=== PATIENT | female | born 1970 | race Caucasian/White ===

== ENCOUNTER → 2016-07-12 | Outpatient (CLI) | payer BC ==
--- NOTE | 2016-07-13 13:44 | MM ---
Reason for exam: screening (asymptomatic). Last mammogram was performed 1 year and 4 months ago. History: Patient is postmenopausal. Family history of breast cancer in paternal grandmother. Took hormonal contraceptives for 2 years beginning at age 35. Physical Findings: A clinical breast exam by your physician is recommended on an annual basis and results should be correlated with mammographic findings. MG Screening Mammo w CAD Bilateral CC and MLO view(s) were taken. Prior study comparison: March 11, 2015, bilateral MG screening mammo w CAD. January 05, 2014, bilateral MG screening mammo w CAD. The breast tissue is heterogeneously dense. This may lower the sensitivity of mammography. There is no discrete abnormality. ASSESSMENT: Negative, BI-RAD 1 RECOMMENDATION: Routine screening mammogram of both breasts in 1 year.
== END | disposition home or self-care (01) ==
LOC: RADMAMWWP 06:58
PROVIDERS: ATTEND Obstetrics & Gynecology
DX: Z12.31 Encounter for screening mammogram for malignant neoplasm of breast (principal)

== ENCOUNTER → 2017-08-07 | Outpatient (CLI) | payer BC ==
--- NOTE | 2017-08-08 10:11 | MM ---
Reason for exam: screening (asymptomatic). Last mammogram was performed 1 year and 1 month ago. History: Patient is postmenopausal. Family history of breast cancer in paternal grandmother. Took hormonal contraceptives for 2 years beginning at age 35. Physical Findings: A clinical breast exam by your physician is recommended on an annual basis and results should be correlated with mammographic findings. MG 3D Screening Mammo W/Cad Bilateral CC and MLO view(s) were taken. Prior study comparison: July 12, 2016, bilateral MG screening mammo w CAD. March 11, 2015, bilateral MG screening mammo w CAD. The breast tissue is extremely dense which could obscure a lesion on mammography. No suspicious abnormality. No significant changes when compared with prior studies. ASSESSMENT: Negative, BI-RAD 1 RECOMMENDATION: Routine screening mammogram of both breasts in 1 year.
== END | disposition home or self-care (01) ==
LOC: RADMAMWWP 15:06
PROVIDERS: ATTEND Obstetrics & Gynecology
DX: Z12.31 Encounter for screening mammogram for malignant neoplasm of breast (principal)
CPT/HCPCS: 77063; 77067

== ENCOUNTER → 2018-10-20 | Outpatient (CLI) | payer BC ==
--- NOTE | 2018-10-21 10:06 | MM ---
Reason for exam: screening (asymptomatic). Last mammogram was performed 1 year and 2 months ago. History: Patient is postmenopausal. Family history of breast cancer in paternal grandmother. Took hormonal contraceptives for 2 years beginning at age 35. Physical Findings: A clinical breast exam by your physician is recommended on an annual basis and results should be correlated with mammographic findings. MG 3D Screening Mammo W/Cad Bilateral CC and MLO view(s) were taken. Prior study comparison: August 07, 2017, bilateral MG 3d screening mammo w/cad. July 12, 2016, bilateral MG screening mammo w CAD. The breast tissue is heterogeneously dense. This may lower the sensitivity of mammography. No suspicious abnormality. No significant changes when compared with prior studies. ASSESSMENT: Negative, BI-RAD 1 RECOMMENDATION: Routine screening mammogram of both breasts in 1 year.
== END | disposition home or self-care (01) ==
LOC: RADMAMWWP 06:57
PROVIDERS: ATTEND Obstetrics & Gynecology
DX: Z12.31 Encounter for screening mammogram for malignant neoplasm of breast (principal)
CPT/HCPCS: 77063; 77067

== ENCOUNTER → 2021-02-02 | Outpatient (CLI) | payer BC ==
--- NOTE | 2021-02-06 08:46 | MM ---
Reason for exam: screening (asymptomatic). Last mammogram was performed 1 year ago. History: Family history of breast cancer in paternal grandmother. Took hormonal contraceptives for 2 years beginning at age 35. Physical Findings: A clinical breast exam by your physician is recommended on an annual basis and results should be correlated with mammographic findings. MG 3D Screening Mammo W/Cad Bilateral CC and MLO view(s) were taken. Prior study comparison: January 29, 2020, bilateral MG 3d screening mammo w/cad. October 20, 2018, bilateral MG 3d screening mammo w/cad. The breast tissue is extremely dense which could obscure a lesion on mammography. No significant changes when compared with prior studies. ASSESSMENT: Negative, BI-RAD 1 RECOMMENDATION: Routine screening mammogram of both breasts in 1 year.
== END | disposition home or self-care (01) ==
LOC: RADMAMWWP 11:01
PROVIDERS: ATTEND Obstetrics & Gynecology
DX: Z12.31 Encounter for screening mammogram for malignant neoplasm of breast (principal)
CPT/HCPCS: 77063; 77067

== ENCOUNTER → 2022-03-23 | Outpatient (CLI) | payer BC ==
--- NOTE | 2022-03-27 07:46 | MM ---
Reason for Exam: Screening (asymptomatic). Last mammogram was performed 1 year(s) and 2 month(s) ago. Patient History: Menarche at age 15. First Full-Term at age 28. Hormonal Contraceptives for 2 years from age 35 until age 37. Paternal grandmother had breast cancer, age 63. Last menstrual period: 01/11/2016 Risk Values: Winnie 5 year model risk: 1.0%. NCI Lifetime model risk: 10.0%. Prior Study Comparison: 10/20/2018 Bilateral Screening Mammogram, [facility]. 01/29/2020 Bilateral Screening Mammogram, [facility]. 02/02/2021 Bilateral Screening Mammogram, [facility]. Tissue Density: The breast tissue is extremely dense which could obscure a lesion on mammography. Findings: Analyzed By CAD. There is no suspicious group of microcalcifications or new suspicious mass in either breast. No significant change from prior exams. Overall Assessment: Negative, BI-RAD 1 Management: Screening Mammogram of both breasts in 1 year. A clinical breast exam by your physician is recommended on an annual basis and results should be correlated with mammographic findings. Electronically signed and approved by: Henri Kern D.O.
== END | disposition home or self-care (01) ==
LOC: RADMAMWWP 16:40
PROVIDERS: ATTEND Obstetrics & Gynecology
DX: Z12.31 Encounter for screening mammogram for malignant neoplasm of breast (principal)
CPT/HCPCS: 77063; 77067

== ENCOUNTER → 2023-09-25 | Outpatient (CLI) | payer BC ==
[2023-09-25 16:09] LABS: Appearance,Urine Clear (Clear); Bilirubin,Urine Negative (Negative); Blood,Urine Negative (Negative); Color,Urine Yellow (Yellow); Ketones,Urine Negative (Negative); Nitrite,Urine Negative (Negative); Specific Gravity,Urine 1.012 (1.001-1.030); Urobilinogen,Urine 0.2 E.U./DL
[2023-09-25 17:02] LABS: Basophils # (A) 0.02 X 10*3/uL (0.00-0.10); Basophils % (A) 0.4 %; Eosinophils # (A) 0.19 X 10*3/uL (0.04-0.35); Eosinophils % (A) 3.6 %; HCT 41.7 % (37.2-46.3); Lymphocytes # (A) 1.34 X 10*3/uL (0.90-5.00); Lymphocytes % (A) 25.1 %; MCH 32.3 pg (27.0-32.0); MCHC 33.6 g/dL (32.0-37.0); MCV 96.3 FL (80.0-97.0); Mean Platelet Volume 10.4 FL (9.5-12.2); Monocytes # (A) 0.45 X 10*3/uL (0.20-1.00); Monocytes % (A) 8.4 %; NRBC Per 100 WBC 0 X 10*3/uL (0.00-0.01); Neutrophils # (A) 3.32 X 10*3/uL (1.80-7.70); Neutrophils % (A) 62.3 %; Platelet Count 237 X 10*3/uL (140-440); RBC 4.33 X 10*6/uL (4.10-5.20); RDW 13.6 % (11.5-14.5); WBC 5.33 X 10*3/uL (4.50-10.00)
[2023-09-25 17:31] LABS: BUN/Creat Ratio 20.12 Ratio (12.00-20.00); Blood Urea Nitrogen 16.1 mg/dL (9.0-27.0); Calcium 9.5 mg/dL (8.7-10.3); Carbon Dioxide 26.1 mmol/L (21.6-31.8); Chloride 105 mmol/L (96-109); Glucose 97 mg/dL (70-110); Potassium 4.1 mmol/L (3.5-5.5); Sodium 141 mmol/L (135-145)
== END | disposition home or self-care (01) ==
LOC: LABPAT 09:57
PROVIDERS: ATTEND Urology
DX: Z01.812 Encounter for preprocedural laboratory examination (principal); N39.3 Stress incontinence (female) (male)
CPT/HCPCS: 36415; 80048; 81003; 85025; 87086

== ENCOUNTER 2023-10-02 07:04 | Day surgery (SDC) | payer BC ==
[2023-09-27 16:06] VITALS: BMI 26.6
--- NOTE | 2023-10-01 17:30 | P.GSHP ---
History of Present Illness H&P Date: 10/01/23 52 yo female with a history of progressive stress urinary incontinence who has failed kegal exercises. She has a hypermobile urethra. SHe has been given treatment options and comes for a transobturator tape with cystoscopy. the risks and complications including infection, pain dyspareunia, injury to adjacent organs and bladder, retention, persistent incontinence among otheres. The mesh controversy has been discussed. SHe comes for this procedure. - Constitutional Constitutional: Denies chills, Denies fever - EENT Eyes: denies blurred vision, denies pain Ears, nose, mouth and throat: Denies headache, Denies sore throat - Cardiovascular Cardiovascular: Denies chest pain, Denies shortness of breath - Respiratory Respiratory: Denies cough, Denies 7 - Gastrointestinal Gastrointestinal: Denies abdominal pain, Denies diarrhea, Denies nausea, Denies vomiting - Genitourinary (Female) Genitourinary: Denies dysuria, Denies hematuria - Genitourinary (Male) Genitourinary: Denies dysuria, Denies hematuria - Musculoskeletal Musculoskeletal: Denies myalgias - Integumentary Integumentary: Denies pruritus, Denies rash - Neurological Neurological: Denies numbness, Denies weakness - Psychiatric Psychiatric: Denies anxiety, Denies depression - Endocrine Endocrine: Denies fatigue, Denies weight change Past Medical History Additional Past Medical History / Comment(s): stress incontinence History of Any Multi-Drug Resistant Organisms: None Reported Past Surgical History: Orthopedic Surgery, Uterine Ablation Additional Past Surgical History / Comment(s): bilat knee scopes. COLOLOSCOPY Past Anesthesia/Blood Transfusion Reactions: No Reported Reaction Smoking Status: Never smoker - Past Family History Mother Family Medical History: No Reported History Medications and Allergies Home Medications Medication Instructions Recorded Confirmed Type No Known Home Medications 09/27/23 09/27/23 History Allergies Allergy/AdvReac Type Severity Reaction Status Date / Time No Known Allergies Allergy Verified 09/27/23 15:35 Surgical - Exam - General well developed, well nourished, no distress - Eyes normal ocular movement, no icteric - ENT no hearing loss, no congestion - Neck no masses, trachea midline - Respiratory normal respiratory effort, clear to auscultation - Abdomen Abdomen: soft, non tender, no guarding, no rigid, no rebound - Genitourinary hypermobile urethra. - Integumentary no rash, no abnormal pigmentation - Neurologic no disoriented, no combative - Psychiatric oriented to time, oriented to person, oriented to place, speech is normal, memory intact Assessment and Plan Assessment: Impression: stress urinary incontinence Plan: transobturator tape with cystoscopy
[~2023-10-02 07:04] MED LIST: HYDROmorphone 0.5 MG/0.5 ML SYRINGE IVP PRN; LIDOCAINE 1% (10MG/ML) FOR IV START INTRADERMA PRN; MIDAZOLAM 2 MG/2 ML VIAL IV PRN
[2023-10-02] MEDS: LACTATED RINGERS 1,000 ML IV SCH (08:04)
[2023-10-02] MEDS: DEXAMETHASONE SOD PHOSPHATE 4 MG/ML 1 ML VIAL IV ONE (08:07)
[2023-10-02] MEDS: ONDANSETRON 4 MG/2 ML VIAL IVP ONE (08:08)
[2023-10-02 08:25] VITALS: RESP 16
[2023-10-02] MEDS: AMPICILLIN 1,000 MG in SODIUM CHLORIDE 0.9% 50 ML IVPB PRN (08:50)
[2023-10-02] MEDS: GENTAMICIN 100 MG in SODIUM CHLORIDE 0.9% 100 ML IVPB PRN (09:05)
[2023-10-02] MEDS: VASOPRESSIN 20 UNIT/ML 1 ML VIAL SQ ONE (09:12)
[2023-10-02] MEDS: GENTAMICIN 80 MG in SODIUM CHLORIDE 0.9% 500 ML 500 ML IRRIGATION ONE (09:15)
[2023-10-02] MEDS ORDERED: ONDANSETRON 4 MG/2 ML VIAL IVP PRN (09:35)
--- NOTE | 2023-10-02 09:40 | P.OP ---
Date of Procedure: 10/02/23 Preoperative Diagnosis: Stress urinary incontinence Postoperative Diagnosis: Same Procedure(s) Performed: Trans-obturator tape (obtyrx 2) bladder neck suspension, cystoscopy Anesthesia: LORELEIA Surgeon: Lefty Cuevas Estimated Blood Loss (ml): 25 Pathology: none sent Condition: stable Disposition: PACU Indications for Procedure: Patient is 52. She has type II stress incontinence on history and physical examination. She comes for a trans-obturator tape bladder neck suspension, the risks and and complications have been outlined Description of Procedure: Patient brought to the operating suite. Given a general anesthetic. Placed lithotomy position with a sterile prep and drape. Hernandez catheters placed. The labor sewn laterally with 2-0 silk. A vaginal speculum is placed. The anterior vaginal mucosa was elevated off the submucosa with 10 mL of a mixture of 20 g of Pitressin and 200 mL of saline. A midline suburethral incision is made. I dissect lateral to the bladder neck bilaterally. I make 2 incisions in the inguinal crease at the level clitoris bilaterally. I passed the trans-obturator tape introducers through the inguinal incisions into the vaginal space making sure not to injure the bladder. This is done bilaterally. The Hernandez catheter is removed. The cystoscope was introduced in the bladder with a Foroblique lens. The bladder is inspected and is normal. There is no evidence of injury in the bladder or urethra. I replaced the Hernandez. I then attached the trans- obturator graft to the introducers and pull it back through the obturator foramen bilaterally. The graft lay in the mid urethra nicely. I removed the redundant sheeting. I closed the vaginal mucosa with 2-0 Vicryl. I excised the redundant graft at the inguinal incisions and close inguinal incisions with 4-0 Vicryl. A vaginal packing is placed in the urine is clear. Blood loss is less than 25 mL. She tolerated the procedure well and will be placed in the hospital postoperatively.
[2023-10-02] MEDS: KETOROLAC 15 MG/ML 1 ML VIAL IVP PRN (17:30)
[2023-10-03 09:19] VITALS: BP 121/77; PULSE 69; TEMP 97.7
--- NOTE | 2023-10-03 14:18 | P.DS ---
Providers Expected date of discharge: 10/03/23 Attending physician: Lefty Cuevsa Primary care physician: [facility] Course: On the day of admission, the patient underwent an Obtryx subfascial sling procedure. The perioperative course was unremarkable. The patient remained afebrile with stable vital signs. Hernandez catheter was removed on the first postoperative day, and she was able to void without difficulty. She was verified to be emptying her bladder adequately. Incisions were clean, dry, and intact. Procedures: Obtryx subfascial sling on October 02, 2023. Patient Condition at Discharge: Good Plan - Discharge Summary Discharge Rx Participant: Yes New Discharge Prescriptions: New Cephalexin [Keflex] 500 mg PO Q8HR 1 Days #9 cap Ketorolac [Toradol] 10 mg PO Q6HR PRN #10 tab PRN Reason: Pain Cephalexin [Keflex] 500 mg PO Q8HR 1 Days #9 cap Ketorolac [Toradol] 10 mg PO Q6HR PRN #10 tab PRN Reason: Pain Discharge Medication List Cephalexin [Keflex] 500 mg PO Q8HR 1 Days #9 cap 10/03/23 [Rx] Cephalexin [Keflex] 500 mg PO Q8HR 1 Days #9 cap 10/03/23 [Rx] Ketorolac [Toradol] 10 mg PO Q6HR PRN #10 tab 10/03/23 [Rx] Ketorolac [Toradol] 10 mg PO Q6HR PRN #10 tab 10/03/23 [Rx] Follow up Appointment(s)/Referral(s): Lefty Cuevas MD [STAFF PHYSICIAN] - 1 Week Patient Instructions/Handouts: *[facility] - Cystoscopy Discharge Instructions, *[facility] - (Anesthesia) Discharge Instructions Outpatient Surgery Activity/Diet/Wound Care/Special Instructions: Diet as tolerated. Drink plenty of fluids. Okay to shower. No strenuous activity. Avoid sexual activity. Prescriptions were inadvertently sent to [facility], then to [facility]. Please cancel Rx at [facility]. Discharge Disposition: HOME SELF-CARE
== END 2023-10-03 12:29 | disposition home or self-care (01) ==
LOC: OR 07:04 → 4FBP 10:04 → OR 10-03 12:29
PROVIDERS: ATTEND Urology
DX: N39.3 Stress incontinence (female) (male) (principal); I10 Essential (primary) hypertension; F32.A Depression, unspecified; F41.9 Anxiety disorder, unspecified; K21.9 Gastro-esophageal reflux disease without esophagitis; F17.290 Nicotine dependence, other tobacco product, uncomplicated; Z98.890 Other specified postprocedural states; Z88.0 Allergy status to penicillin; Z79.899 Other long term (current) drug therapy
CPT/HCPCS: 81025; 57288; C1771; J1580 ×2; J1100; J2405; J0290; J1885

== ENCOUNTER → 2024-07-28 | Outpatient (CLI) | payer BC ==
--- NOTE | 2024-07-28 14:02 | MM ---
Reason for Exam: Screening (asymptomatic). Last mammogram was performed 1 year(s) and 4 month(s) ago. Patient History: Menarche at age 15. First Full-Term at age 28. Hormonal Contraceptives for 2 years from age 35 until age 37. Paternal grandmother had breast cancer, age 63. Risk Values: Winnie 5 year model risk: 1.1%. NCI Lifetime model risk: 9.7%. Prior Study Comparison: 02/02/2021 Bilateral Screening Mammogram, [facility]. 03/23/2022 Bilateral MG 3D screening mammo w/cad, [facility]. 04/01/2023 Bilateral MG 3D diag mammo w/cad [facility], [facility]. Tissue Density: The breasts are heterogeneously dense, which may obscure small masses. Findings: Analyzed By CAD. Unchanged areas of asymmetric density. There is no suspicious group of microcalcifications or new suspicious mass in either breast. Overall Assessment: Benign, BI-RAD 2 Management: Screening Mammogram of both breasts in 1 year. . Patient should continue monthly self-breast exams. A clinical breast exam by your physician is recommended on an annual basis. This exam should not preclude additional follow-up of suspicious palpable abnormalities. Note on Winnie scores and lifetime risk: 1. A Winnie score greater than 3% is considered moderate risk. If this is the case, consider specialist referral to assess eligibility for a risk reducing agent. 2. If overall lifetime risk for the development of breast cancer is 20% or higher, the patient may qualify for future screening with alternating mammogram and breast MRI. [facility], , 07/28/2024 1:59 PM. Electronically signed and approved by: Kenny Mckeon M.D. Radiologist
== END | disposition home or self-care (01) ==
LOC: RADMAMWWP 10:08
PROVIDERS: ATTEND Obstetrics & Gynecology
DX: Z12.31 Encounter for screening mammogram for malignant neoplasm of breast (principal); Z80.3 Family history of malignant neoplasm of breast; R92.333 Mammographic heterogeneous density, bilateral breasts
CPT/HCPCS: 77063; 77067

== ENCOUNTER → 2024-09-05 | Outpatient (CLI) | payer BC ==
--- NOTE | 2024-09-07 10:17 | MR ---
EXAMINATION TYPE: MR knee LT wo con DATE OF EXAM: 09/05/2024 3:13 PM COMPARISON: None. CLINICAL INDICATION: Female, 53 years old with history of M25.562 PAIN IN LEFT KNEE M17.12 UNILATERAL PRIMAR; PH[facility], Left knee pain for about 6 weeks, history of scope on knee. TECHNIQUE: Multi planar, multi sequence imaging was performed of the knee including: Triplane proton density fat-saturated images and T1-weighted imaging. No Gadolinium was given. IV Contrast: mL (none if empty) FINDINGS: Medial meniscus: Mucoid degeneration of the posterior horn/body posteriorly with horizontal tear of the body. Medial femorotibial cartilage: Grade-II chondromalacia. Medial collateral ligament: Intact Lateral meniscus: Horizontal tear of the body and vertical/undersurface tear of the posterior hor n. The anterior horn demonstrates heterogenous signal with suspected complex multidirectional tear wh ich appears more remote. Lateral femorotibial cartilage: Full-thickness cartilage loss of the tibial plateau series 411 im age 12 there is subchondral cystic change. Lateral collateral ligament complex: Intact Patellofemoral alignment: Normal Patellofemoral cartilage: Grade-III chondromalacia. Extensor mechanism: Intact. Joint/bursal fluid: Edema within the Hoffa fat pad is present. Jason's cyst present measuring 8.3 x 1.3 x 0.9 cm. There is a moderate joint effusion. Muscles/tendons: Ganglion cyst anterior to the attachment of the anterior cruciate ligament. The ahn llar tendon, quadriceps tendon, IT band, pes anserinus tendons, semimembranosus tendon, popliteus ten don, and biceps femoris tendon are all within normal limits. Bone marrow: Low T1 and low T2 signal bone island in the medial femoral condyle. Subchondral cyst ic change of the lateral tibial plateau Anterior cruciate ligament: Intact. Posterior cruciate ligament: Intact. Soft tissues: Unremarkable. IMPRESSION: 1. Lateral meniscus posterior horn vertical tear, horizontal body tear and anterior multidirectional tear. 2. Medial meniscus body horizontal tear 3. ACL/PCL/MCL/LCL are intact. 4. 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 5. Edema within Hoffa's fat-pad correlate for infrapatellar impingement syndrome. 6. Complex Jason's cyst extending inferiorly. 7. Small joint effusion. [facility], , 09/07/2024 10:14 AM
== END | disposition home or self-care (01) ==
LOC: RADMRIMAIN 14:18
PROVIDERS: ATTEND Orthopaedic Surgery
DX: S83.282A Other tear of lateral meniscus, current injury, left knee, initial encounter (principal); M17.12 Unilateral primary osteoarthritis, left knee; M71.22 Synovial cyst of popliteal space [Baker], left knee; M25.462 Effusion, left knee